=== PATIENT | female | born 1995 | race American Indian/Alaskan Native ===

== ENCOUNTER 2020-01-27 22:43 | Emergency (ER) | payer MEDICAID ==
[2020-01-28 00:36] VITALS: BP 133/72
[2020-01-28 01:08] LABS: HCG Qualitative,Urine Negative (Negative)
[2020-01-28] MEDS ORDERED: METOCLOPRAMIDE 10 MG TAB PO ONE (03:59)
[2020-01-28] MEDS ORDERED: BUTALB/ACETAMINOPHEN/CAFFEINE TAB PO ONE (03:59)
[2020-01-28] MEDS ORDERED: diphenhydrAMINE 25 MG CAP PO ONE (03:59)
--- NOTE | 2020-01-28 04:03 | Emergency Department Report ---
ED Headache HPI - General Chief Complaint: Headache Stated Complaint: HEADACHE Time Seen by Provider: 01/28/20 03:33 - History of Present Illness Initial Comments: Patient is a 25-year-old female presents emergency room with a CRUZ that has been intermittent over the last 2 weeks. She states that she feels it in the temples and across the forehead. She states that she did see her [employer] this complaint and was referred to neurology and is awaiting an appointment. She states that she does feel nauseous. She denies any fever, syncope, vomiting, diarrhea, vision changes, numbness, weakness, speech disturbance, gait disturbance. no PMHx. No allergies medications. [facility] 01/09/2020. Allergies/Adverse Reactions: Allergies No Known Allergies Allergy (Unverified 01/15/13 03:33) Home Medications: Ambulatory Orders HYDROcodone/APAP 5-325 [Shiloh 5/325] 1 each PO Q6HR PRN #20 tablet 06/26/18 Ibuprofen [Motrin] 800 mg PO Q8HR PRN #60 tablet 06/26/18 Vit,Vikram 74/Iron/Folic [ Low Iron Tablet] 1 each PO DAILY 06/26/18 HYDROcodone/APAP 5-325 [Shiloh 5/325] 1 each PO Q6HR PRN #20 tablet 10/08/19 Ibuprofen [Motrin] 800 mg PO Q8HR PRN #40 tablet 10/08/19 Butalb/Acetaminophen/Caffeine [Fioricet 50-300-40 mg CAP] 1 cap PO Q8HR PRN #10 cap 01/28/20 ED Review of Systems ROS: Stated complaint: HEADACHE Other details as noted in HPI Comment: All other systems reviewed and negative ED Past Medical Hx - Past Medical History Previous Medical History?: No Hx Hypertension: No Hx Congestive Heart Failure: No Hx Diabetes: No Hx Deep Vein Thrombosis: No Hx Renal Disease: No Hx Sickle Cell Disease: No Hx Seizures: No Hx Asthma: No Hx COPD: No Hx HIV: No - Surgical History Past Surgical History?: No - Social History Smoking Status: Never Smoker Substance Use Type: None - Medications Home Medications: Home Medications Medication Instructions Recorded Confirmed Last Taken Type HYDROcodone/APAP 5-325 [Shiloh 1 each PO Q6HR PRN #20 tablet 06/26/18 10/06/19 10/04/19 09:00 Rx 5/325] 1 Ibuprofen [Motrin] 800 mg PO Q8HR PRN #60 tablet 06/26/18 10/06/19 10/04/19 09:00 Rx Vit,Vikram 74/Iron/Folic 1 each PO DAILY 06/26/18 10/06/19 1 Day Ago History [ Low Iron Tablet] ~10/04/19 1 HYDROcodone/APAP 5-325 [Shiloh 1 each PO Q6HR PRN #20 tablet 10/08/19 Unknown Rx 5/325] Ibuprofen [Motrin] 800 mg PO Q8HR PRN #40 tablet 10/08/19 Unknown Rx Butalb/Acetaminophen/Caffeine 1 cap PO Q8HR PRN #10 cap 01/28/20 Unknown Rx [Fioricet 50-300-40 mg CAP] ED Physical Exam - General Limitations: No Limitations General appearance: alert, in no apparent distress - Head Head exam: Present: atraumatic, normocephalic - Eye Eye exam: Present: normal appearance, PERRL, EOMI. Absent: scleral icterus, conjunctival injection, nystagmus, periorbital swelling, periorbital tenderness Pupils: Present: normal accommodation - ENT ENT exam: Present: mucous membranes moist - Neck Neck exam: Present: normal inspection, full ROM. Absent: meningismus - Respiratory Respiratory exam: Present: normal lung sounds bilaterally. Absent: respiratory distress, wheezes, rales, rhonchi, stridor, chest wall tenderness, accessory muscle use, decreased breath sounds, prolonged expiratory - Cardiovascular Cardiovascular Exam: Present: regular rate, normal rhythm, normal heart sounds. Absent: systolic murmur, diastolic murmur, rubs, gallop - Neurological Exam Neurological exam: Present: alert, oriented X3, CN II-XII intact, normal gait, other (normal finger to nose, normal heel to mos[place], 5/5 muscle strength in the BUE/BLE, sensation intact throughout, no focal neuro deficit). Absent: motor sensory deficit - Psychiatric Psychiatric exam: Present: normal affect, normal mood - Skin Skin exam: Present: warm, dry, intact ED Course Vital Signs 01/28/20 00:29 Temperature 97.9 F Pulse Rate 74 Respiratory 18 Rate Blood Pressure 133/72 O2 Sat by Pulse 99 Oximetry ED Medical Decision Making - Medical Decision Making Patient is a 25-year-old female presents emergency room with a CRUZ that has been intermittent over the last 2 weeks. She states that she feels it in the temples and across the forehead. She states that she did see her [employer] this complaint and was referred to neurology and is awaiting an appointment. She states that she does feel nauseous. She denies any fever, syncope, vomiting, diarrhea, vision changes, numbness, weakness, speech disturbance, gait disturbance. no PMHx. No allergies medications. [facility] 01/09/2020. Vitals are stable. No focal neuro deficit on exam. Patient has no meningeal signs. She has no thunderclap headache. This has been intermittent over the last 2 weeks and she already is being referred to a neurologist for migraines. Patient given Reglan, Benadryl, Fioricet while in the emergency department and headache completely improved and pt was ready to go home. patient given prescription for Fioricet. advised pt Please take medication as prescribed as needed. Follow-up with your primary care doctor. Return to emergency room for any new or worsening symptoms. - Differential Diagnosis Migraine, cluster, tension headache, sinusitis Critical care attestation.: If time is entered above; I have spent that time in minutes in the direct care of this critically ill patient, excluding procedure time. ED Disposition Clinical Impression: Headache Qualifiers: Headache type: unspecified Headache chronicity pattern: acute headache Intractability: not intractable Qualified Code(s): R51.9 - Headache, unspecified Disposition: DC-01 TO HOME OR SELFCARE Is pt being admited?: No Does the pt Need Aspirin: No Condition: Stable Instructions: Migraine Headache, Hxob-md-Ehak Additional Instructions: Please take medication as prescribed as needed. Follow-up with your primary care doctor. Return to emergency room for any new or worsening symptoms. Prescriptions: Butalb/Acetaminophen/Caffeine [Fioricet 50-300-40 mg CAP] 1 cap PO Q8HR PRN #10 cap PRN Reason: headache Referrals: CESAR MOTA MD [Primary Care Provider] - 2-3 Days Forms: Work/School Release Form(ED) Time of Disposition: 05:04 Print Language: PORTUGUESE
== END 2020-01-28 05:09 | disposition home or self-care (01) ==
LOC: ED 22:43
DX: R51.9 Headache, unspecified (principal)
CPT/HCPCS: 81025; 99283